=== PATIENT | female | born 1955 | race Caucasian/White ===

== ENCOUNTER 2020-12-05 12:15 | Emergency (ER) | payer MEDICARE, SELFPAY ==
[2020-12-05 12:16] VITALS: BP 167/87; PULSE 72; RESP 18; TEMP 36.7; O2SAT 97; BMI 25.7
--- NOTE | 2020-12-05 13:32 | HMH.EDGENADL ---
ED Disposition Clinical Impression: Chronic back pain Qualifiers: Back pain location: low back pain Back pain laterality: right Sciatica presence: with sciatica Sciatica laterality: sciatica of right side Qualified Code(s): M54.41 - Lumbago with sciatica, right side; G89.29 - Other chronic pain Disposition: Home, Self-Care Condition on Discharge: Good Instructions: DI for Chronic Pain -- Adult Referrals: Sherri Butts [Primary Care Provider] - - Critical Care Critical Care Time: No Attestation: On 12/05/20, the high probability of a clinically significant, sudden or life threatening deterioration of the following system(s) required my full and direct attention, intervention and personal management. The time I documented below is in addition to time spent performing reported procedures but includes the following listed in this critical care notation. Medical Decision Making - Medical Records Medical records reviewed: Yes: I reviewed the patient's medical records. - Geovanni Inquiry Pt receiving controlled substance: No Vital Signs: 12/05/20 12:16 Temperature 98.1 F Temperature Source Oral Pulse Rate [Right] 72 Respiratory Rate 18 Blood Pressure [Right Arm] 167/87 H Blood Pressure Mean [Right Arm] 113 02 Sat by Pulse Oximetry 97 Oxygen Delivery Method Room Air Orders (Tests/Meds): ED MEDICATIONS Generic Name Dose Route Start Last Admin Trade Name Freq PRN Reason Stop Dose Admin Methocarbamol 500 mg 12/05/20 12:45 12/05/20 12:49 Methocarbamol 500mg Tablet PO 01/04/21 12:44 500 mg BID KEY Administration Discontinued Medications Generic Name Dose Route Start Last Admin Trade Name Freq PRN Reason Stop Dose Admin Ketorolac Tromethamine 30 mg 12/05/20 12:37 12/05/20 12:49 Ketorolac 30mg/Ml Vial IM 12/05/20 12:38 30 mg ONCE ONE Administration Oxycodone/Acetaminophen 1 each 12/05/20 12:37 12/05/20 12:49 Oxycodone 5mg W/Apap 325mg Tablet PO 12/05/20 12:38 1 each ONCE ONE Administration Prednisone 20 mg 12/05/20 12:37 12/05/20 12:49 Prednisone 20mg Tab PO 12/05/20 12:38 20 mg ONCE ONE Administration Medical Decision Narrative: 65-year-old female who presents well-appearing and nontoxic on initial examination with acute worsening of her sciatic pain related to spondylolisthesis. Patient is scheduled with an orthopedic surgeon and has contacted him for pain medicine however that he has not been able to call her medicine and and she is having extreme pain. She is able to ambulate and there is no concerning findings for compressive syndrome. She was given Robaxin, Toradol IM 30 mg, prednisone 20 mg, and 5 mg Percocet p.o. Patient symptoms improved with therapy she was given a prescription for prednisone and Robaxin, and discharged in good condition with appropriate return precautions. General Adult HPI - General Chief complaint: Extremity Injury, Lower Stated complaint: pain rt leg/back Time Seen by Provider: 12/05/20 12:30 Mode of Arrival: Family Vehicle Limitations: No Limitations Description of Symptoms (Recalled from ER Triage Doc. by RN): Patient c/o right leg pain that radiates from her right buttocks down to right leg. Pt reports hx of spondylosis. Pt reports she sees a neurologist for these complaints. - History of Present Illness HPI narrative: Worsening right sciatica back pain consistent with her spondylolisthesis that she is scheduled to see a surgeon Marya for. Patient does not currently have any pain medicine and is spoken with her orthopedic surgeon about refilling her prescription. She denies saddle anesthesia, urinary retention, weakness in her legs. States that she is having the sharp shooting pain down the back of her right leg that she has had in the past it is just become more persistent over the last few days without pain medicine. She took Percocet over the last 2 days that she was found from a previous injury in her medi
[2020-12-05 13:41] VITALS: BP 129/65; PULSE 87; RESP 18; TEMP 36.6; O2SAT 98
== END 2020-12-05 13:44 | disposition home or self-care (01) ==
PROVIDERS: Emergency Provider Student in an Organized Health Care Education/Training Program; PCP Nurse Practitioner Family
DX: M54.41 Lumbago with sciatica, right side (principal); G89.29 Other chronic pain
CPT/HCPCS: 96372; 99282

== ENCOUNTER 2023-02-11 09:02 | Emergency (ER) | payer MEDICARE, SELFPAY ==
--- NOTE | 2023-02-11 09:05 | ECG_ITS ---
APPROVED REPORT Exam: Resting ECG HR:59 bpm ECG Measurements Heart Rate 59 AXES AL 217 P 54 QRSd 99 QRS 48 QT 441 T 51 QTc 439 Conclusion SINUS BRADYCARDIA WITH FIRST DEGREE AV BLOCK ABNORMAL ECG UNCONFIRMED REPORT Electronically signed by : Efrain Floyd MD 02/12/2023 08:48:52
[2023-02-11 09:12] VITALS: BP 165/87; PULSE 68; RESP 19; TEMP 36.4; O2SAT 99; BMI 26.6
--- NOTE | 2023-02-11 09:12 | XR_ITS ---
FINAL REPORT CLINICAL HISTORY: CP x1 wk FINDINGS: The heart size is normal. The mediastinum is within normal limits. There are mild bibasilar opacities. There is no pleural effusion. There is no pneumothorax. The bony thorax is intact. IMPRESSION: Mild bibasilar opacities could represent atelectasis or pneumonia. Reviewed, Interpreted and Dictated by Cisco Moya III, MD Transcribed by Jerel Ferrer Authenticated and [facility]
--- NOTE | 2023-02-11 09:16 | PC.NURSE ---
DR SAMANIEGO AT BEDSIDE
[2023-02-11 09:30] VITALS: BP 143/91; PULSE 66; O2SAT 99
[2023-02-11 09:31] LABS: Basophils # 0.1 K/mm3 (0-0.2); Basophils % 0.9 % (0.1-2.0); Eosinophils # 0.2 K/mm3 (0.0-0.4); Eosinophils % 2.1 % (0.1-12.0); Hematocrit 38.9 % (37.0-47.0); Hemoglobin 11.6 g/dL (12.2-16.2); Lymphocytes % 26.3 % (10-50); Mean Corpuscular HGB Conc 29.8 g/dL (31.8-35.4); Mean Corpuscular Hemoglobin 24.9 pg (27.0-31.2); Mean Corpuscular Volume 83.5 fl (81-99); Mean Platelet Volume 7.7 fl (7.4-10.4); Monocytes # 0.6 K/mm3 (0.1-1.0); Monocytes % 8.2 % (1.7-9.3); Neutrophils # 4.7 K/mm3 (1.8-7.8); Neutrophils % 62.5 % (37.0-80.0); Platelet Count 449 K/mm3 (142-424); Red Blood Count 4.66 M/mm3 (4.20-5.40); Red Cell Distribution Width 18.1 % (11.5-17.5); White Blood Count 7.6 K/mm3 (4.8-10.8)
--- NOTE | 2023-02-11 09:36 | HMH.EDGENADL ---
Discharge Plan Disposition Patient Disposition: Home, Self-Care Chief Complaint: Chest Pain Referrals Follow up/Referrals: Sherri Butts [Primary Care Provider] - See instructions Laci Valdez MD [Staff Physician] - See instructions Activity Restrictions/Add. Instructions Additional Instructions/Restrictions: Call your family doctor to establish care for this visit to the emergency department and schedule follow-up within 48 hours to ensure improvement. If you have any worsening of your condition or any other concerning signs or symptoms, return to the emergency department or your primary care doctor for further evaluation. Cardiology information here, call them for follow-up. Clinical Impressions Clinical Impression: Chest pain Qualifiers: Chest pain type: other chest pain Qualified Code(s): R07.89 - Other chest pain Discharge ED Provider: Rc Bowser General Adult HPI General Chief complaint: Chest Pain Stated complaint: Chest Pain Time Seen by Provider: 02/11/23 09:04 Mode of Arrival: Ambulatory Source of Information: Patient Limitations: No Limitations Description of Symptoms (Recalled from ER Triage Doc. by RN): pt to ed c/o center chest pain that started x1 week ago and became worse last night. pt reports some soa with exertion. pt denies n/v. History of Present Illness HPI narrative: 67-year-old female with history of hypertension, fibromyalgia, anxiety, chronic MSK pain presenting with chest pain. Patient states that she had COVID complicated by bacterial pneumonia about a month ago and started feeling better last week of January. For the last week or so, she has had shortness of breath with exertion, intermittent, stabbing pain in the lower center/left side of her chest that radiates to her left shoulder blade. No associated nausea or vomiting. Patient states that when the pain hits, she will become short of breath, diaphoretic, but no neurologic deficits. No cardiac history Related Data Allergies Allergy/AdvReac Type Severity Reaction Status Date / Time Sulfa (Sulfonamide Allergy Verified 12/05/20 13:26 Antibiotics) [facility] Disclaimer: The information contained in this section may have been updated after the patient was seen, as this information can be updated by other users. Social History Smoking Status: Never smoker alcohol intake: never current occupational status: employed Travel in the last 8 weeks: None ROS Obtained: Yes All systems reviewed & no additional complaints except as documented Physical Exam General General appearance: alert and in no apparent distress Head Head exam: atraumatic and normocephalic Eye Eye exam: Present normal appearance, PERRL and EOMI ENT ENT exam: Present mucous membranes moist Neck Neck exam: Present normal inspection, full ROM and trachea midline Respiratory Respiratory exam: Present normal lung sounds bilaterally; Absent respiratory distress, wheezes, stridor, accessory muscle use or prolonged expiratory phase Cardiovascular Cardiovascular exam: Present regular rate and normal rhythm Abdominal Exam Abdominal exam: Present soft; Absent distention, tenderness, guarding, rebound, rigidity or normal bowel sounds Extremities Exam Extremities exam: Absent edema Neurological Exam Neurological exam: Present alert, oriented X3, CN II-XII intact and normal gait; Absent motor sensory deficit Skin Skin exam: Present warm and dry; Absent diaphoresis or erythema Medical Decision Making Medical Records Medical records reviewed: Yes I reviewed the patient's medical records. Geovanni Inquiry Pt receiving controlled substance: No Geovanni was queried for this patient: No Vital Signs: 02/11/23 09:12 02/11/23 09:30 02/11/23 10:00 Temperature 97.5 F L Temperature Source Oral Pulse Rate 66 60 Pulse Rate [Left Radial] 68 Respiratory Rate 19 Blood Pressure 143/91 H 155/90 H Blood Pressure [Right Arm] 165/87 H Blood Pressure
[2023-02-11 09:49] LABS: Lipase 94 U/L (23-300)
[2023-02-11 09:50] LABS: Alanine Aminotransferase 18 U/L (12-78); Albumin Level 4.1 g/dl (3.5-5.0); Albumin/Globulin Ratio 1.5 (1.1-1.8); Alkaline Phosphatase 92 U/L (38-126); Anion Gap 11.1 mEq/L (5-15); Aspartate Amino Transferase 25 U/L (14-36); Bilirubin,Total 0.3 mg/dl (0.2-1.3); Blood Urea Nitrogen 35 mg/dl (7-17); Calcium 9.4 mg/dl (8.4-10.2); Carbon Dioxide 32 mmol/L (22.0-30.0); Chloride 99 mmol/L (98-107); Creatinine Clearance Estimated 62 mL/min (50-200); Estimated Glomerular Filt Rate 55 ml/min (>60); GFR (African American) 67 ML/MIN (>60); Globulin 2.8 g/dL (1.3-3.2); Glucose 90 mg/dl (74-100); Potassium 4.1 mmoL/L (3.5-5.1); Sodium 138 mmol/L (136-145); Total Protein,Serum 6.9 g/dl (6.3-8.2)
[2023-02-11 09:51] LABS: Troponin I < 0.01 ng/ml (0.00-0.034)
[2023-02-11 09:59] LABS: NT Pro Brain Natriuretic Pep. 101 pg/mL (0-125)
[2023-02-11 10:00] VITALS: BP 155/90; PULSE 60; O2SAT 96
[2023-02-11 10:30] VITALS: BP 157/87; PULSE 61; O2SAT 96
[2023-02-11 11:39] VITALS: BP 142/89; PULSE 72; RESP 20; TEMP 36.4; O2SAT 97
== END 2023-02-11 11:40 | disposition home or self-care (01) ==
PROVIDERS: Emergency Provider Emergency Medicine; PCP Nurse Practitioner Family
DX: R07.89 Other chest pain (principal); R06.02 Shortness of breath; I10 Essential (primary) hypertension; M79.7 Fibromyalgia; F41.9 Anxiety disorder, unspecified
CPT/HCPCS: 71045; 80053; 83690; 83880; 84484; 85025; 93005; 99285

== ENCOUNTER → 2023-02-25 10:15 | Outpatient (CLI) | payer MEDICARE, SELFPAY ==
--- NOTE | 2023-02-25 10:16 | CT_ITS ---
FINAL REPORT TECHNIQUE: Then section axial CT images of the chest were obtained with contrast. Three-D reformatted images were also obtained.This study was performed with techniques to keep radiation doses as low as reasonably achievable (ALARA). Individualized dose reduction techniques using automated exposure control or adjustment of mA and/or kV according to the patient's size were employed. CLINICAL HISTORY: dyspnea, chest pain, edema COMPARISON: 11/18/2022 FINDINGS: A moderate sized hiatal hernia is present. There is no evidence of pulmonary embolism. There is no evidence of thoracic aortic aneurysm or dissection. There is no evidence of mediastinal or hilar mass or adenopathy. There is a stable 4 mm nodule adjacent to the left major fissure superiorly that may represent an intrafissural node. There are several other small pleural-based pulmonary nodules in the left hemithorax. There is degenerative change once again identified in the left sternoclavicular joint IMPRESSION: No evidence of pulmonary embolism. Stable nodules as described. Degenerative change left sternoclavicular joint, stable. Reviewed, Interpreted and Dictated by Cisco Moya III, MD Transcribed by Nichole Hilliard Authenticated and [facility]
[2023-02-25 11:02] LABS: Blood Urea Nitrogen 23 mg/dl (7-17)
[2023-02-25 11:03] LABS: Estimated Glomerular Filt Rate 71 ml/min (>60); GFR (African American) 86 ML/MIN (>60)
--- NOTE | 2023-02-25 11:29 | CA_ITS ---
APPROVED REPORT EXAM: Comprehensive 2D, Doppler, and color-flow Echocardiogram Neonatal Intensive Care Unit Nurse: Marcelle Valdovinos RVT Ht: 5 ft 5 in Wt: 168lbs BSA: 1.84 BP: 137/82 mmHg Indications: SOA,CP,EDEMA,RECENT COVID 2D Dimensions LVOT 2.08 cm (M/F) 1.5-2.5 LA Volume 47.00 mL LA Volume Index 25.54 mL/m2 (M/F) 16-34 M-Mode Dimensions RVDd 3.43 cm (0.9-2.6) LA Diam 3.86 cm (1.9-4.0) LVDd 4.75 cm (3.5-5.7) Ao Diam 3.04 cm (2.0-3.7) LVDs 3.00 cm (3.5-5.7) IVSd 1.07 cm (0.6-1.1) PWd 0.61 cm (0.6-1.1) EF (Teich) 66.60% FS 36.80% EDV (Teich) 104.90 mL TAPSE 2.51 (<1.7) ESV (Teich) 35.00 mL LV Diastology E Decel Time 263.00 (160-240 msec) E/A Ratio 0.8 MED E' 11.00 (< 7 cm/sec) E'/MED E' Ratio 7.61 (>14) LAT E' 5.00 (<10 cm/sec) E/LAT E' Ratio 16.74 (>14) Aortic Valve LVOT Max 90.00 (70-110 cm/s) LVOT VTI 20.45 cm AoV Peak Phani. 148.00 (50-130 cm/s) AO Peak GR. 8.80 mmHg AO Mean GR. 4.90 (<5 mmHg) AO VTI 33.38 (18-25 cm) BASHIR (VTI) 2.08 (2.5-4.5 cm2) Mitral Valve MV E Max Phani. 84.00 (40-130 cm/s) MV A Velocity 107.00 (40-130 cm/s) E/A Ratio 0.78 MV Decel. Time 263.00 (160-240 ms) MV PHT 77.00 ms Pulmonary Valve PV Peak Velocity 89.00 (50-150 cm/s) Tricuspid Valve TR P. Velocity 225.00 cm/s RAP Estimate 10.00 mmHg RVSP 30.20 mmHg Left Ventricle The left ventricle is normal size. The left ventricular systolic function is normal. The left ventricular ejection fraction is within the normal range. There is increased LV wall thickness. Proximal septal thickening is noted. There is normal LV segmental wall motion. Diastolic function is indeterminate. LVEF is 55%. Right Ventricle The right ventricle is mildly dilated. The right ventricular systolic function is normal. Atria The left atrium is mildly dilated. The right atrium size is normal. There is no Doppler evidence of interatrial shunt. Aortic Valve The aortic valve opens well. There is no aortic valvular stenosis. No aortic regurgitation is present. Mitral Valve The mitral valve is normal in structure. Trace mitral regurgitation. Tricuspid Valve The tricuspid valve leaflets are thin and pliable. Mild tricuspid regurgitation. RVSP is 20-25 mmHg. Pulmonic Valve The pulmonary valve is normal in structure. Trace pulmonic regurgitation. Great Vessels The aortic root is normal in size. The ascending aorta is normal in size. IVC is normal in size and collapses >50% with inspiration. Pericardium There is no pericardial effusion. Other Information Study Quality: Fair Conclusion Normal biventricular systolic function. No significant valvular stenosis or regurgitation. Electronically signed by : Berta Valdez MD 02/28/2023 22:15:16
== END ==
LOC: RAD 10:16
PROVIDERS: PCP Nurse Practitioner Family; Visit Provider Internal Medicine
DX: R06.09 Other forms of dyspnea (principal); R07.9 Chest pain, unspecified; R60.9 Edema, unspecified; R07.89 Other chest pain
CPT/HCPCS: 36415; 71275; 82565; 84520; 93306; Q9967

== ENCOUNTER → 2023-03-11 07:15 | Outpatient (CLI) | payer MEDICARE, SELFPAY ==
--- NOTE | 2023-03-11 07:18 | NM_ITS ---
APPROVED REPORT Exam: Nuclear Stress Test Indication: chest pain..soa..fatigue..high bp..high cholesterol..family hx Patient Location: Outpatient Stress Tech: April Davey [place] Tech:Olimpia Regalado JIEMyke RT(R)(N) Ht: 5 ft 5 in Wt: 165 lbs Bra Size: 36d HR: 81 bpm BP: 151/92 mmHg BSA: 1.82 m2 Rhythm: NSR TID: 0.76 BMI: 27.4 History: chest pain..soa..fatigue..high bp..high cholesterol..family hx Procedure: Patient exercised on Geoffrey protocol 4:22 minutes and sec, resting heart rate 81 bpm, resting blood pressure 151/92 mmHg, with exercise maximum heart rate achived was 140 bpm which is 92 % of the maximum predicted heart rate and blood pressure was 159/94 mmHg. Test was stopped due to fatigue. Patient denied any complaint of chest pain. Patient has Average exercise capacity, achieved 7.0 METs of workload on treadmill, the blood pressure response to exercise was Normal. Cardiac Stress and Resting SPECT Images: Cardiac Stress and Resting SPECT images were obtained using technetium 99m Myoview 31.4 mCi stress and 10.95 mCi at rest. Resting and stress imaging in supine and prone positions demonstrate no evidence of fixed or reversible perfusion defects. Gated imaging demonstrates normal global and regional LV systolic function. LVEF is calculated at 65%. Conclusion: No evidence of fixed or reversible perfusion defects. Gated imaging demonstrates normal global and regional LV systolic function. LVEF is calculated at 65%. Electronically signed by : Berta Valdez MD 03/14/2023 22:33:39
--- NOTE | 2023-03-11 10:12 | CA_ITS ---
APPROVED REPORT Exam: Exercise Treadmill Technologist: April Davey Ht: 5 ft 5 in Wt: 172 lbs BSA: 1.86 m2 HR: 63 bpm BP: 151/92 mmHg Rhythm: NSR Indications: Chest pain Medical History Medications: Vitamin D3,,,,, Pantoprazole,,,,, Atorvastatin,,,,, HCTZ,,,,, Ropinirole,,,,, Diclofenac,,,,, DulOXETINE,,,,, Stress Test Details Test: Geoffrey HR Resting HR: 81 bpm Max Heart Rate (APMHR): 152 bpm Max HR Achieved: 140 bpm Target HR (85% APMHR): 129 bpm % of APMHR: 92 Recovery HR: 85 bpm HR response to stress: Normal HR response to stress BP Resting BP: 151.0/92.0 mmHg Max BP: 159.0/94.0 mmHg Recovery BP: 143.0/82.0 mmHg BP response to stress: Normal blood pressure response to stress. ECG Resting ECG: Sinus rhythm Stress EC.[address] depression Arrhythmia: None Recovery ECG: Return to baseline within 3 minutes of recovery Recovery Arrhythmia: None Clinical Exercise duration: 04:22 min Highest Stage Achieved: Exercise capacity: 7.0 METs Overall Exercise Capacity for Age: Average Stress ECG Conclusion The patient was able to exercise for a total of 4 minutes, 22 seconds. She achieved a total of 7 METS. She has average exercise capacity compared to age and sex matched peers. She has normal HR and BP response to exercise. Symptoms: Dyspnea, fatigue Arrhythmias/Ectopy: None ST-T Changes: 0.[address] depression Conclusion: Average exercise capacity. No evidence of ischemia on ECG stress test. Myoview images are reported separately. Test Summary REST . . . . . . . Sitting REST . . . . . . . Standing REST 03:14 0.0 0.0 81 . 151/ 92 . . Stage 1 01:00 10.0 1.7 98 . . . . Stage 1 02:00 10.0 1.7 115 . . . . Stage 1 03:00 10.0 1.7 123 . . . . Stage 2 . . . . . . . Myoview Injected Stage 2 01:00 12.0 2.5 135 . . . . Stage 2 01:22 12.0 2.5 139 . . . Stop exercise at 04:22 RECOVERY 01:00 0.0 0.0 127 . . . . RECOVERY 02:00 0.0 0.0 105 . . . . RECOVERY 03:00 0.0 0.0 92 . 159/ 94 . . RECOVERY 04:00 0.0 0.0 88 . 159/ 94 . . RECOVERY 05:00 0.0 0.0 86 . 150/ 80 . . RECOVERY 05:11 0.0 0.0 83 . 143/ 82 . . Electronically signed by : Berta Valdez MD 03/14/2023 22:32:19
== END ==
LOC: RAD 07:16
PROVIDERS: PCP Nurse Practitioner Family; Visit Provider Nurse Practitioner Family
DX: R07.9 Chest pain, unspecified (principal)
CPT/HCPCS: 78452; 93017; A9502

== ENCOUNTER → 2023-04-23 13:19 | Outpatient (CLI) | payer MEDICARE, SELFPAY ==
[2023-04-23 14:37] LABS: Blood Urea Nitrogen 24 mg/dl (7-17); Estimated Glomerular Filt Rate 55 ml/min (>60); GFR (African American) 67 ML/MIN (>60)
== END ==
PROVIDERS: Visit Provider Nurse Practitioner Family
DX: I10 Essential (primary) hypertension (principal); R07.89 Other chest pain
CPT/HCPCS: 36415; 82565; 84520

== ENCOUNTER 2023-04-24 08:58 | Outpatient (CLI) | payer MEDICARE, SELFPAY ==
--- NOTE | 2023-04-24 08:58 | CT_ITS ---
APPROVED REPORT Glass Edger: CLINICAL INDICATION Chest Pain TECHNIQUE Image Acquisition: A 128 slice MDCT scanner ([employer]) was used for data acquisition. A noncontrast coronary calcium scan was performed. A CT attenuation threshold of 130 Hounsfield units (HU) was used for the detection of calcium in contiguous voxels of 1 sq mm in area to be counted as individual lesions. Bolus tracking in the ascending aorta with a threshold of 180 HU was performed. Immediately afterwards, ECG synchronized cardiac CT was then performed from the cardiac base to apex using retrospective gating with ECG tube current modulation. A total of 85 mL of Isovue 370 mg/mL contrast medium was administered at 5 mL/sec followed by a saline flush using a biphasic injection protocol. A tube voltage of 120 KVp was used. The patient received the following medications prior to the cardiac CT. 25 mg of oral metoprolol 5 mg of intravenous metoprolol 0.8 mg of sublingual nitroglycerin The average heart rate at the time of acquisition was 55 bpm and regular. Image Reconstruction Transaxial images were reconstructed at 0.67 mm slide thickness. Data was reviewed interactively on an advanced workstation capable of 2 and 3-dimensional displays in all conventional reconstruction formats, including multiplanar reformations, maximum intensity projections, curved multiplanar reformations, and volume rendered reconstructions. When applicable, selected routine images describing the relevant coronary anatomy and pathology were saved and sent to PACS. Complications None Technical Quality Overall image quality was good. Coronary artery opacification was adequate. Total DLP (Dose-Length Product) is 1253.8 mGy-cm. The reported value represents the total of one or more individual components during the CT acquisition of this date and at this time, and as such, the same value may appear in more than one CT report depending on the interpreting/reporting physicians. COMPARISON None FINDINGS CT Coronary Calcium Scoring LMA (Left Main Artery) = 0 LAD (Left Anterior Descending) = 26 LCX (Left Coronary Circumflex) = 0 RCA (Right Coronary Artery) = 0 Total Calcium Score = 26 using the AJ-130 method. The observed calcium score of 26 is at 60th percentile for subjects of the same age, sex, and race/ethnicity. The interpretation of the calcium heart score is based on the following continuum*: 0 = no calcified plaque detected (risk of coronary artery disease is very low ??? less than 5%) 1-10 = calcium detected in extremely minimal levels (risk of coronary diseases is still low ??? less than 10%) 11-100 = mild levels of plaque detected with certainty (mild or minimal narrowing of heart arteries is likely) 101-400 = definite,at least moderate levels of plaque detected (relatively high risk of a heart attack within 3-5 years) >401-999 = extensive levels of plaque detected (high risk of heart attack, high levels of vascular disease are present, high likelihood of at least one significant coronary narrowing) *The calcium heart score quantifies the burden of coronary calcification/plaque in the coronary arteries. The calcium heart score is not able to evaluate the presence or burden of non-calcified (i.e. soft) plaque. There is calcification in the aortic valve, but no identifiable calcification in the mitral annulus or mitral valve, pericardium, or myocardium. Coronary CT Angiography The coronary arterial system is right dominant. Quantitative Stenosis Grading: Left Main (LM): The left main originates normally from the left sinus of Valsalva. The LM bifurcates into the left anterior descending artery and left circumflex artery. The LM is patent with no evidence of atherosclerosis. Left Anterior Descending (LAD) and Diagonal Branches: The LAD gives off 2 diagonal branches. There is focal calcification in the mid-LAD but without any luminal stenosis. The remainder of the LAD and its branches are patent with no evidence of atherosclerosis. There is no evidence of LAD bridge. Left Circumflex (LCX) and Obtuse Marginals (OM): The LCX gives off 1 Obtuse Marginal (OM) branch. The LCX and its branches are patent with no evidence of atherosclerosis. Right Coronary Artery (RCA): The RCA originates normally from the right sinus of Valsalva. The RCA gives off a posterior descending artery (PDA) and posterolateral (PL) branches. The RCA and its branches are patent with no evidence of atherosclerosis. Non-Coronary Cardiac Findings: Analysis of the left ventricular (LV) structure and function was performed after 3-D reconstruction of the LV from axial images, with user-corrected automatic contouring for assessment of LV volumes and user-defined reconstruction from oblique planes for measurement of 3-D cardiac structure and function. LVEDV: 156 mL LVESV: 61 mL SV: 95 mL LVEF: 61.1 % -The left ventricle is normal in size with normal left ventricular systolic function. -There is no left atrial appendage filling defect. Two right pulmonary veins and two left pulmonary veins drain normally into the left atrium. -No pericardial thickening or calcification. -Central and branch pulmonary arteries in the [id number] are unremarkable. -Thoracic aorta within the visualized thoracic aortic-branches in the [id number] is unremarkable. Extracardiac Structures -Hiatal hernia is present. IMPRESSION -Presence of coronary calcification with an Agatston score = 26 using the AJ-130 method. -The observed calcium score of 26 is at 60th percentile for subjects of the same age, sex, and race/ethnicity. -No evidence of significant flow-limiting atherosclerosis of the coronary arteries. -CAD-RADS 1. Management recommendations per ACC/AHA guidelines*, as clinically appropriate. -Hiatal hernia is present. *Recommendations: CAD RADS 0: Reassurance. Consider non-atherosclerotic causes of chest pain. CAD RADS 1: Consider non-atherosclerotic causes of chest pain. Consider preventive therapy and risk factor modification. CAD RADS 2: Consider non-atherosclerotic causes of chest pain. Consider preventive therapy and risk factor modification, particularly for patients with nonobstructive plaque in multiple segments. CAD RADS 3: Consider further functional testing. Consider symptom-guided anti-ischemic and preventive pharmacotherapy as well as risk factor modification per published guideline statements. CAD RADS 4A: Consider further functional testing or invasive coronary angiography with revascularization per published guideline statements. Consider symptom-guided anti-ischemic and preventive pharmacotherapy as well as risk factor modification per published guideline statements. CAD RADS 4B: Invasive coronary angiography recommended with revascularization per published guideline statements. Consider symptom-guided anti-ischemic and preventive pharmacotherapy as well as risk factor modification per published guideline statements. CAD RADS 5: Consider invasive angiography and/or viability assessment with revascularization per published guideline statements. Consider symptom-guided anti-ischemic and preventive pharmacotherapy as well as risk factor modification per published guideline statements. CRITICAL RESULT None COMMUNICATION Per this written report The coronary and cardiac findings of this CCTA were reviewed, reported, and signed by Laci Valdez MD (Test Borer Helper) Conclusion Electronically signed by : Berta Valdez MD 04/24/2023 13:32:53
[2023-04-24 09:21] VITALS: BMI 27.3
[2023-04-24] MEDS: METOPROLOL TARTRATE 25MG TABLET 25 MG PO (09:25)
[2023-04-24 09:46] LABS: Chloride 95 mmol/L (98-107); Potassium 3.6 mmoL/L (3.5-5.1); Sodium 133 mmol/L (136-145)
[2023-04-24 09:49] LABS: Anion Gap 11.6 mEq/L (5-15); Blood Urea Nitrogen 20 mg/dl (7-17); Calcium 9.3 mg/dl (8.4-10.2); Carbon Dioxide 30 mmol/L (22.0-30.0); Creatinine Clearance Estimated 63 mL/min (50-200); Estimated Glomerular Filt Rate 55 ml/min (>60); GFR (African American) 67 ML/MIN (>60); Glucose 93 mg/dl (74-100)
[2023-04-24] MEDS: METOPROLOL TARTRATE 5MG/5ML VIAL 5 MG IV (10:22)
[2023-04-24 10:27] VITALS: BP 165/97; PULSE 67; RESP 18
[2023-04-24] MEDS: NITROGLYCERIN 0.4MG SL TABLET 0.800000000000000044 MG SL (10:27)
[2023-04-24 10:35] VITALS: BP 130/74; PULSE 58
[2023-04-24 10:40] VITALS: BP 137/69; PULSE 56; RESP 16; TEMP 36.2; O2SAT 96
--- NOTE | 2023-04-24 10:45 | PC.NURSE ---
1027-To CT room, VSS, Nitro 0.8mg sl given per CTA protocol 1032-post Nitro 127/75
--- NOTE | 2023-04-24 10:47 | PC.NURSE ---
1035. CTA complete. VSS. Taken to post op report to Geo Mosqueda RN
[2023-04-24 10:50] VITALS: BP 136/78; PULSE 52; RESP 18; O2SAT 96
[2023-04-24] MEDS: SODIUM CHLORIDE 0.9% 10ML SYR (RAD ONLY) 10 ML IV (10:55)
[2023-04-24] MEDS: 0.9 % SODIUM CHLORIDE 50 ML VIAL IV (10:55)
[2023-04-24] MEDS: IOPAMIDOL-370 (76%);100ML BOTTLE 85 ML IV (10:56)
[2023-04-24 11:00] VITALS: BP 137/68; PULSE 58; RESP 18; O2SAT 97
[2023-04-24 11:10] VITALS: BP 130/72; PULSE 59; RESP 18; O2SAT 98
== END 2023-04-24 11:15 | disposition home or self-care (01) ==
PROVIDERS: PCP Nurse Practitioner Family; Visit Provider Nurse Practitioner Family
DX: R06.09 Other forms of dyspnea (principal); R07.9 Chest pain, unspecified; I25.84 Coronary atherosclerosis due to calcified coronary lesion
CPT/HCPCS: 75571; 75574; 80048; Q9967